=== PATIENT | female | born 1980 | race African-American/Black ===

== ENCOUNTER 2017-03-13 11:03 | Emergency (ER) | payer SELFPAY ==
[~2017-03-13] VITALS: Ht 167.6 cm; Wt 71.0 kg
[2017-03-13 11:05] VITALS: BP 129/78; PULSE 56; RESP 18; TEMP 98.8; O2SAT 100
[2017-03-13] MEDS ORDERED: SODIUM CHLOR 0.9% 1000 ML INJ 1,000 ML IV SCH (11:28)
--- NOTE | 2017-03-13 11:28 | PD ---
HPI Chief Complaint: GI Complaint Time Seen by Provider: 11:21 Travel History International Travel<30 days: Yes Contact w/Intl Traveler<30days: Yes Name of Country Traveled to: [facility] Traveled to known affect area: No History of Present Illness HPI 36-year-old Afro-Mexican female presents the emergency department with middle back pain for 2 days, with nausea and vomiting since last night. Patient was on a cruise to [facility] which last for approximate 4 days, when she states she thought she threw her back out. She went to the doctor on the ship and was given some ibuprofen which she took, she subsequently developed nausea and vomiting through the last night and this morning. Patient denies fever, chills , significant abdominal pain, urinary symptoms, or diarrhea. Her back pain is across the lower thoracic upper lumbar region. Patient denies significant alcohol use although she was drinking. Patient's pain currently is about a 5 out of 10 in her back, and she feels nauseous. She has no known drug allergies. PFSH Past Medical History Medical History: Denies Significant Hx Tetanus Vaccination: > 5 Years Influenza Vaccination: Yes (2015) ?: Not LMP: 1 week ago Past Surgical History Surgical History: No Previous Surgery Social History Alcohol Use: Yes (WEEKENDS) Tobacco Use: No Substance Use: No Allergies-Medications (Allergen,Severity, Reaction): Coded Allergies: No Known Allergies (Unverified , 03/13/17) Reported Meds & Prescriptions Reported Meds & Active Scripts Active No Active Prescriptions or Reported Medications Review of Systems Except as stated in HPI: all other systems reviewed are Neg General / Constitutional: No: Fever Eyes: No: Visual changes HENT: No: Headaches Cardiovascular: No: Chest Pain or Discomfort Respiratory: No: Shortness of Breath Gastrointestinal: Positive: Nausea, Vomiting, No: Diarrhea, Abdominal Pain Genitourinary: No: Dysuria Musculoskeletal: Positive: Myalgias, Pain (see history present illness) Skin: No Rash Neurologic: No: Weakness Psychiatric: No: Depression Endocrine: No: Polydipsia Hematologic/Lymphatic: No: Easy Bruising Physical Exam Narrative GENERAL: Patient appears ill but not septic. She is uncomfortable. SKIN: Warm and dry. Normal color. Normal turgor. HEAD: Atraumatic. Normocephalic. EYES: Pupils equal and round. No scleral icterus. No injection or drainage. ENT: No nasal bleeding or discharge. Mucous membranes pink and somewhat dry. Pharynx is clear. Airway is patent. NECK: Trachea midline. Supple and nontender. CARDIOVASCULAR: Regular rate and rhythm. RESPIRATORY: No accessory muscle use. Clear to auscultation. Breath sounds equal bilaterally. Patient complains of discomfort with palpation of the soft tissues of the lower thoracic upper lumbar region. No bony tenderness. GASTROINTESTINAL: Abdomen soft, non-tender, nondistended. Normal bowel sounds are present in all quadrants. Hepatic and splenic margins not palpable. Patient has mild to moderate CVA tenderness. MUSCULOSKELETAL: Extremities without clubbing, cyanosis, or edema. No obvious deformities. NEUROLOGICAL: Awake and alert. No obvious cranial nerve deficits. Motor grossly within normal limits. Five out of 5 muscle strength in the arms and legs. Normal speech. PSYCHIATRIC: Appropriate mood and affect; insight and judgment normal. Data Data Last Documented VS Vital Signs Date Time Temp Pulse Resp B/P Pulse Ox O2 Delivery O2 Flow Rate FiO2 03/13/17 12:09 65 18 134/74 99 Room Air 03/13/17 11:05 98.8 Orders Complete Blood Count With Diff (03/13/17 11:28) Comprehensive Metabolic Panel (03/13/17 11:28) Lipase (03/13/17 11:28) Urinalysis - C+S If Indicated (03/13/17 11:28) Iv Access Insert/Monitor (03/13/17 11:28) Ecg Monitoring (03/13/17 11:28) Oximetry (03/13/17 11:28) Ondansetron Inj (Zofran Inj) (03/13/17 11:30) Sodium Chlor 0.9% 1000 Ml Inj (Ns 1000 M (03/13/17 11:28) Sodium Chloride 0.9% Flush (Ns Flush) (03/13/17 11:30) Ketorolac Inj (Toradol Inj) (03/13/17 11:30) Ed Urine Pregnancytest Poc (03/13/17 11:28) Oral Contrast - Adult (03/13/17 11:40) Diatrizoate Liq ( Gastroview Liq) (03/13/17 11:47) Morphine Inj (Morphine Inj) (03/13/17 12:00) Ct Abd/Pel W Iv Contrast(Rout) (03/13/17 12:48) Morphine Inj (Morphine Inj) (03/13/17 13:00) Iohexol 350 Inj (Omnipaque 350 Inj) (03/13/17 13:30) Ondansetron Inj (Zofran Inj) (03/13/17 14:15) Labs Laboratory Tests Test 03/13/17 03/13/17 11:43 14:12 White Blood Count 10.0 TH/MM3 Red Blood Count 4.19 MIL/MM3 Hemoglobin 12.8 GM/DL Hematocrit 38.2 % Mean Corpuscular Volume 91.0 FL Mean Corpuscular Hemoglobin 30.4 PG Mean Corpuscular Hemoglobin 33.4 % Concent Red Cell Distribution Width 14.7 % Platelet Count 210 TH/MM3 Mean Platelet Volume 8.6 FL Neutrophils (%) (Auto) 75.6 % Lymphocytes (%) (Auto) 17.2 % Monocytes (%) (Auto) 6.4 % Eosinophils (%) (Auto) 0.4 % Basophils (%) (Auto) 0.4 % Neutrophils # (Auto) 7.6 TH/MM3 Lymphocytes # (Auto) 1.7 TH/MM3 Monocytes # (Auto) 0.6 TH/MM3 Eosinophils # (Auto) 0.0 TH/MM3 Basophils # (Auto) 0.0 TH/MM3 CBC Comment DIFF FINAL Differential Comment Sodium Level 143 MEQ/L Potassium Level 3.4 MEQ/L Chloride Level 108 MEQ/L Carbon Dioxide Level 27.3 MEQ/L Anion Gap 8 MEQ/L Blood Urea Nitrogen 8 MG/DL Creatinine 0.97 MG/DL Estimat Glomerular Filtration 79 ML/MIN Rate Random Glucose 102 MG/DL Calcium Level 9.3 MG/DL Total Bilirubin 0.8 MG/DL Aspartate Amino Transf 43 U/L (AST/SGOT) Alanine Aminotransferase 36 U/L (ALT/SGPT) Alkaline Phosphatase 69 U/L Total Protein 7.8 GM/DL Albumin 3.8 GM/DL Lipase 131 U/L Urine Color YELLOW Urine Turbidity CLEAR Urine pH 7.5 Urine Specific [place] GREATER THAN 1.050 Urine Protein 100 mg/dL Urine Glucose (UA) NEG mg/dL Urine Ketones 10 mg/dL Urine Occult Blood NEG Urine Nitrite NEG Urine Bilirubin NEG Urine Urobilinogen LESS THAN 2.0 MG/DL Urine Leukocyte Esterase NEG Urine RBC 1 /hpf Urine WBC 4 /hpf Urine Squamous Epithelial 4 /hpf Cells Urine Mucus FEW /lpf Microscopic Urinalysis Comment CULT NOT INDICATED MDM Medical Decision Making Medical Screen Exam Complete: Yes Emergency Medical Condition: Yes Differential Diagnosis Gastroenteritis. Lumbago. Pancreatitis. Urinary tract infection. . Narrative Course Patient appears ill but not septic. Labs ordered including CBC, CMP, urinalysis, and lipase. IV access is obtained and the patient is given 1000 miles normal saline bolus as well as 4 mg Zofran IV, and [address] of the abdomen and pelvis is ordered with IV contrast. Patient requests something more for pain after the above, and is given 4 mg of morphine IV. CBC is essentially unremarkable except for an elevated neutrophil count of 75.6% . WBCs are 10. Chemistry shows normal sodium, potassium 3.4, chloride of 108. AST is slightly elevated at 43. Alkaline phosphatase is normal 69, lipase is 131. She is given an additional 4 mg of Zofran IV as well as an additional 2 mg morphine IV. Urinalysis is unremarkable. CT shows no acute process. Patient does have fatty liver. Patient will be discharged home with Zofran 4 mg every 6 hours when necessary nausea #15. Tylenol and ibuprofen as needed [id number]. Patient is to rest and push fluids for the next several days. Work note is given. Diagnosis Primary Impression: Nausea and vomiting Qualified Code: R11.2 - Non-intractable vomiting with nausea, unspecified vomiting type Referrals: [facility] Primary Care Physician Patient Instructions: Acute Nausea and Vomiting (ED), General Instructions Additional Instructions: CBC is essentially unremarkable except for an elevated neutrophil count of 75.6% . WBCs are 10. Chemistry shows normal sodium, potassium 3.4, chloride of 108. AST is slightly elevated at 43. Alkaline phosphatase is normal 69, lipase is 131. She is given an additional 4 mg of Zofran IV as well as an additional 2 mg morphine IV. Urinalysis is unremarkable. CT shows no acute process. Patient does have fatty liver. Patient will be discharged home with Zofran 4 mg every 6 hours when necessary nausea #15. Tylenol and ibuprofen as needed [id number]. Patient is to rest and push fluids for the next several days. Work note is given. Med/Other Pt SpecificInfo: Prescription(s) given Scripts No Active Prescriptions or Reported Meds Disposition: DISCHARGE HOME Condition: Stable Glenna,Tyrone F. PA Mar 13, 2017 11:28
[2017-03-13] MEDS ORDERED: KETOROLAC TROMETHAMINE 30 MG/ML (IVP) VIAL IVP ONE (11:30)
[2017-03-13] MEDS ORDERED: SODIUM CHLORIDE 0.9% FLUSH 10 ML FLUSH IV FLUSH PRN (11:30)
[2017-03-13] MEDS ORDERED: ONDANSETRON HCL 4 MG/2 ML VIAL IVP ONE (11:30)
[2017-03-13 11:46] VITALS: O2SAT 99
[2017-03-13] MEDS ORDERED: DIATRIZOATE MEGLUM/DIATRIZOATE SOD 9 ML CUP ONE (11:47)
[2017-03-13] MEDS ORDERED: MORPHINE SULFATE 4 MG/ML INJ IV PUSH ONE ×2 (12:00→13:00)
[2017-03-13 12:06] LABS: AUTOMATED NEUTROPHIL # 7.6 TH/MM3 (1.8-7.7); BASOPHIL % 0.4 % (0.0-2.0); EOSINOPHIL % 0.4 % (0.0-4.0); HEMATOCRIT 38.2 % (35.0-46.0); HEMO FLAGS DIFF FINAL; LYMPH % 17.2 % (9.0-44.0); LYMPHOCYTE # 1.7 TH/MM3 (1.0-4.8); MEAN CORPUSCULAR HEMOGLOBIN 30.4 PG (27.0-34.0); MEAN CORPUSCULAR HGB CONC 33.4 % (32.0-36.0); MONO % 6.4 % (0.0-8.0); NEUT % 75.6 % (16.0-70.0); PLATELET COUNT 210 TH/MM3 (150-450); RED BLOOD COUNT 4.19 MIL/MM3 (4.00-5.30); RED CELL DISTRIBUTION WIDTH 14.7 % (11.6-17.2)
[2017-03-13 12:09] VITALS: BP 134/74; PULSE 65; RESP 18; O2SAT 99
[2017-03-13 12:21] LABS: ALT (GPT) 36 U/L (10-53); ANION GAP 8 MEQ/L (5-15); AST (GOT) 43 U/L (15-37); BICARBONATE 27.3 MEQ/L (21.0-32.0); BLOOD UREA NITROGEN 8 MG/DL (7-18); CHLORIDE 108 MEQ/L (98-107); GLOMERULAR FILTRATION RATE 79 ML/MIN (>89); POTASSIUM 3.4 MEQ/L (3.5-5.1); SODIUM (NA) 143 MEQ/L (136-145)
[2017-03-13 12:24] LABS: ALKALINE PHOSPHATASE 69 U/L (45-117); TOTAL BILIRUBIN ADULT 0.8 MG/DL (0.2-1.0)
[2017-03-13] MEDS ORDERED: IOHEXOL 350 MG/ML 10 ML VIAL (for RAD DIAG) IV ONE (13:30)
--- NOTE | 2017-03-13 13:53 | RADRPT ---
EXAM DATE/TIME: 03/13/2017 13:23 [facility] COMPARISON: No previous studies available for comparison. INDICATIONS : Mid-back pain, nausea and vomiting. IV CONTRAST: 97 cc Omnipaque 350 (iohexol) IV ORAL CONTRAST: Partial prescribed oral contrast ingested. RADIATION DOSE: 6.18 CTDIvol (mGy) MEDICAL HISTORY : None SURGICAL HISTORY : None. ENCOUNTER: Initial ACUITY: 1 day PAIN SCALE: 6/10 LOCATION: Bilateral flank TECHNIQUE: Volumetric scanning of the abdomen and pelvis was performed. Using automated exposure control and ad justment of the mA and/or kV according to patient size, radiation dose was kept as low as reasonably achievable to obtain optimal diagnostic quality images. DICOM format image data is available electro nically for review and comparison. FINDINGS: LOWER LUNGS: The visualized lower lungs are clear. LIVER: Liver is coarse in density. No dilated biliary ducts are seen. There is a low density area adjacent t o the falciform ligament measuring 1.8 cm. This could be a cyst versus fatty infiltration. The gallbl adder is unremarkable.. SPLEEN: Normal size without lesion. PANCREAS: Within normal limits. KIDNEYS: Normal in size and shape. There is no mass, stone or hydronephrosis. ADRENAL GLANDS: Within normal limits. VASCULAR: There is no aortic aneurysm. BOWEL/MESENTERY: The stomach, small bowel, and colon demonstrate no acute abnormality. There is no free intraperitone al air or fluid. The appendix is unremarkable. No inflammatory changes are seen. ABDOMINAL WALL: Within normal limits. RETROPERITONEUM: There is no lymphadenopathy. BLADDER: No wall thickening or mass. REPRODUCTIVE: Within normal limits. There is an IUD within the uterus. INGUINAL: There is no lymphadenopathy or hernia. MUSCULOSKELETAL: There is some nonspecific increased soft tissue changes in the subcutaneous fat along the right butto cks. This is nonspecific and could represent some edema/hemorrhage from focal trauma. Recommend corre lation with patient's physical exam. The bony structures are grossly intact and within normal limits for patient's age. CONCLUSION: 1. Coarse appearance to the liver suggestive of either fatty infiltration versus hepatocellular disea se. 2. 1.8 cm low-density area adjacent to the falciform ligament. Density measurements suggest a possibl e cyst. 3. IUD within uterus. 4. Nonspecific soft tissue changes in the subcutaneous fat over the right buttocks area. Recommend co rrelation with patient's physical exam and clinical history. Austin Malhotra MD on March 13, 2017 at 13:45 Board Certified Radiologist. This report was verified electronically.
[2017-03-13] MEDS ORDERED: ONDANSETRON HCL 4 MG/2 ML VIAL IV PUSH ONE (14:15)
[2017-03-13 14:27] LABS: BLOOD, URINE NEG (NEG); COMMENT (UR) CULT NOT INDICATED; CULTURE IF INDICATED CULT NOT INDICATED; GLUCOSE,URINE NEG (NEG); KETONE, URINE 10 mg/dL (NEG); MUCUS URINE FEW /lpf (OCC); NITRITE,URINE NEG (NEG); PH, URINE 7.5 (5.0-8.5); SQUAMOUS EPITHELIAL CELL URINE 4 /hpf (0-5); URINE COLOR YELLOW (YELLW/STRAW)
[2017-03-13] MEDS ORDERED: ZOFR4TAB3 SL (14:51)
[2017-03-13 14:58] VITALS: BP 132/86
[2017-03-13] MEDS ORDERED: TRAM50TA PO (15:07)
== END 2017-03-13 15:48 | disposition home or self-care (01) ==
LOC: NEPD 11:03
DX: R11.2 Nausea with vomiting, unspecified (principal); M54.6 Pain in thoracic spine
CPT/HCPCS: 74177; 80053; 81001; 83690; 84703; 85025; 96374; 96375; 96376; 99285; J1885; J2270; J2405; J7030; Q9963; Q9967